=== PATIENT | male | born 1975 | race Caucasian/White ===

== ENCOUNTER 2017-01-03 19:58 | Emergency (ER) | payer OTHER ==
[~2017-01-03] VITALS: Ht 188 cm; Wt 77.9 kg
[2017-01-03 20:05] VITALS: TEMP 36.9; Ht 188 cm; Wt 77.9 kg
[2017-01-03] MEDS ORDERED: KETOROLAC TROMETHAMINE 60 MG/2 ML VIAL IM STA (20:40)
[2017-01-03] MEDS ORDERED: CYCLOBENZAPRINE HCL 10 MG TAB PO STA (20:40)
[2017-01-03] MEDS ORDERED: IBUP-103 PO (20:56)
--- NOTE | 2017-01-03 21:42 | DIAGNOSTIC IMAGING REPORT ---
RIGHT RIBS UNILATERAL WITH PA CHEST CLINICAL HISTORY: 41 years-old Male presenting with right rib pain s/p fall Right. TECHNIQUE: Frontal and lateral views of the right ribs and PA view of the chest were obtained. COMPARISON: None. FINDINGS: Cardiomediastinal silhouette normal. Lungs and pleural spaces clear. No pleural effusion or pneumothorax. No displaced rib fracture, however, minimal cortical irregularity of the right lateral ninth and 10th ribs. Remaining osseous structures intact. IMPRESSION: Questionable nondisplaced fractures of the right lateral ninth and 10th ribs. Electronically signed by: Kenneth Richardson M.D. 01/03/2017 9:41 PM Dictated Date/Time: 01/03/2017 9:38 PM
[2017-01-03 22:05] VITALS: BP 163/101; PULSE 88; O2SAT 100
[2017-01-03] MEDS ORDERED: OXYCODONE IR HOME PACK PO ONE (22:15)
[2017-01-03] MEDS ORDERED: IBUP-1427 PO (22:30)
[2017-01-03] MEDS ORDERED: ACET-1222 PO (22:30)
[2017-01-03] MEDS ORDERED: CYCL10TA6 PO (22:30)
[2017-01-03] MEDS ORDERED: OXYC1TAB3 PO (22:30)
--- NOTE | 2017-01-03 22:36 | EMERGENCY ROOM VISIT NOTE ---
ED Visit Note First contact with patient: 20:25 CHIEF COMPLAINT: Rib injury HISTORY OF PRESENT ILLNESS: This 41-year-old male patient presents to the emergency department ambulatory, complaining of pain in the right ribs after falling in the bathtub yesterday. The patient states he was taking a shower, when he slipped and fell landing on his right side on the side of the tub. The patient states the incident occurred yesterday morning. He has been taking Motrin, which does help with the muscle spasms. The patient states there are significant spasms in the right side and back. The patient denies hematuria, but is concerned about his kidneys. The patient states he did hear a crack when he fell. He went to urgent care, but was sent to the emergency department for further evaluation. There is increased pain with deep breathing or coughing. Attempting to sit up from a lying position is painful. Denies shortness of breath or coughing up blood. The patient rates the pain as sharp and 9/10. The patient has taken ibuprofen yesterday with minimal relief of the pain. No previous fractures to the ribs. The patient denies any other injury. The patient denies any abdominal pain, nausea, or vomiting. REVIEW OF SYSTEMS: A 6 system review of systems was completed with positives and pertinent negatives listed in the HPI. ALLERGIES: None MEDICATIONS: Tylenol, Mucinex PMH: Sinusitis, hypertension SOCIAL HISTORY: He should lives in [place]. He is in town for [employer] classes at [facility]. PHYSICAL EXAM: VITALS: Vitals are noted on the nurse's note and reviewed by myself. Vital signs stable. GENERAL: This is a 41-year-old male, in no acute distress, nondiaphoretic, well- developed well-nourished. LUNGS: Clear to auscultation and breath sounds equal , no wheezes, rales, or rhonchi. HEART: Heart sounds are regular without murmurs, ectopy, gallop, or rub. CHEST: The right chest wall is tender to palpation over the ankle and 10th ribs but there is no fracture crepitus and no ecchymosis. There is no tachypnea or dyspnea. ABDOMEN: Positive bowel sounds x 4. Normal tympanic percussion. Soft, nontender, without masses or organomegaly. No guarding or rebound tenderness. NEURO: Patient was alert and oriented to person place and time. RADIOLOGY: X-Ray Right Rib with PA Chest: FINDINGS: Cardiomediastinal silhouette normal. Lungs and pleural spaces clear. No pleural effusion or pneumothorax. No displaced rib fracture, however, minimal cortical irregularity of the right lateral ninth and 10th ribs. Remaining osseous structures intact. IMPRESSION: Questionable nondisplaced fractures of the right lateral ninth and 10th ribs. EMERGENCY DEPARTMENT COURSE: I examined the patient. The patient was given 60 mg Toradol IM and 10 mg cyclobenzaprine in the emergency department. He did report significant improvement in his pain with these medications. X-rays of the chest with right rib detail was reviewed by myself and radiologist and show nondisplaced fractures of the ninth and 10th ribs. I discussed this with the patient and showed him the images. The patient did take cell phone photos. He did request a disc, as he is returning home to [place] tomorrow. I discussed discharge instructions with the patient, and encouraged him to perform deep breathing exercises frequently. The patient is in agreement with the plan at this time. He was discharged home in good condition. DIAGNOSIS: Rib fracture TREATMENT and DISCHARGE INSTRUCTIONS: You have been treated in the Emergency Department for nondisplaced rib fracture (ribs 9 and 10). You have been prescribed OxyIR to be used for pain control. This is a narcotic medication. You cannot drive or consume alcohol while on this medicine. This medicine should only be used for pain that cannot be controlled with over-the- counter pain medicines. You have been prescribed Flexeril (cyclobenzaprine) 1 tab orally, three times per day. Do NOT exceed 30 mg (3 tabs) per day. Take your first dose at bedtime as it can make you drowsy. Always take all medications as prescribed. For pain control, you can use the following pfka-npy-paurked medicines (if >12 yo): Ibuprofen(Motrin, Advil) may be used for fever or pain. Use 600mg every six hours as needed. Take with food. Avoid using more than 2400mg in a 24 hour period. Do not use 2400mg per day for more than three consecutive days without physician direction. Prolonged inappropriate use can lead to stomach upset or ulcers. (AND/OR) Acetaminophen(Tylenol) may be used for fever or pain. Use 1000mg every six to eight hours as needed. Avoid using more than 3000mg in a 24 hour period. \ *You may alternate ibuprofen/acetaminophen every 3-4 hours. If this is an acute injury, ice can be applied to the area of pain for the first 3 days to help decrease pain and inflammation. After the first 3 days, a heating pad can be used over the area for continued soothing relief. To minimize your discomfort, you can hug a pillow while coughing or sneezing. Additionally, you should continue to force yourself to take nice, deep breaths. Full expansion of the lungs is necessary to prevent the accumulation of fluid in the lung tissue and development of pneumonia. Use the incentive spirometry device you received in the ED. You should schedule a follow-up appointment in 2-3 days with your Primary Care Provider for further evaluation and treatment of your back pain. Return to the Emergency Department if your current symptoms worsen despite treatment course outlined above, or if you develop any of the following symptoms : intractable pain despite aforementioned treatment course, development of a wet cough, bloody cough, fever, chills, or increased shortness of breath. Current/Historical Medications Scheduled Cyclobenzaprine Hcl (Flexeril), 10 MG PO TID Scheduled PRN Acetaminophen (Acetaminophen Extra Stren), 1-2 TABS PO TID PRN for Pain Ibuprofen Tab (Advil), 800 MG PO Q8 PRN for Pain Ibuprofen Tab (Motrin), 600 MG PO Q6H PRN for Pain Oxycodone Ir (Roxicodone Ir), 1-2 TAB PO Q4H PRN for Pain Allergies Coded Allergies: No Known Allergies (Unverified , 01/03/17) Vital Signs Date Time Temp Pulse Resp B/P (MAP) Pulse Ox O2 Delivery O2 Flow Rate FiO2 01/03/17 22:05 88 20 163/101 100 Room Air 01/03/17 20:05 36.9 101 18 165/113 94 Room Air Medications Administered Medications (Trade) Dose Ordered Sig/Nima Route Start Time Stop Time Status Last Admin Dose Admin Ketorolac Tromethamine (Toradol Inj) 60 mg NOW STAT IM 01/03/17 20:40 01/03/17 20:41 DC 01/03/17 20:59 60 MG Cyclobenzaprine HCl (Flexeril Tab) 10 mg NOW STAT PO 01/03/17 20:40 01/03/17 20:41 DC 01/03/17 20:59 10 MG Oxycodone HCl (Roxicodone Immediate Rel 5MG Home Pack) 1 homepack UD ONCE PO 01/03/17 22:15 01/03/17 22:16 DC 01/03/17 22:22 1 HOMEPACK Departure Information Impression Primary Impression: Multiple fractures of ribs, right side, initial encounter for closed fracture Dispostion Home / Self-Care Condition GOOD Prescriptions Oxycodone Ir (Roxicodone Ir) 5 Mg Tab 1-2 TAB PO Q4H Y for Pain, #30 TAB For Initial Treatment Prov: Ruma Cantu PA-C 01/03/17 Acetaminophen (ACETAMINOPHEN EXTRA STREN) 500 Mg Tab 1-2 TABS PO TID Y for Pain, #30 TABS Prov: Ruma Cantu PA-C 01/03/17 Ibuprofen Tab (MOTRIN) 600 Mg Tab 600 MG PO Q6H Y for Pain, #30 TAB Prov: Ruma Cantu PA-C 01/03/17 Cyclobenzaprine Hcl (FLEXERIL) 10 Mg Tab 10 MG PO TID, #15 TAB Prov: Ruma Cantu PA-C 01/03/17 Referrals No Doctor, Assigned (PCP) Patient Instructions ED Fx Rib, My [facility] Additional Instructions You have been treated in the Emergency Department for nondisplaced rib fracture (ribs 9 and 10). You have been prescribed OxyIR to be used for pain control. This is a narcotic medication. You cannot drive or consume alcohol while on this medicine. This medicine should only be used for pain that cannot be controlled with over-the- counter pain medicines. You have been prescribed Flexeril (cyclobenzaprine) 1 tab orally, three times per day. Do NOT exceed 30 mg (3 tabs) per day. Take your first dose at bedtime as it can make you drowsy. Always take all medications as prescribed. For pain control, you can use the following lsku-yzi-gzuileb medicines (if >12 yo): Ibuprofen(Motrin, Advil) may be used for fever or pain. Use 600mg every six hours as needed. Take with food. Avoid using more than 2400mg in a 24 hour period. Do not use 2400mg per day for more than three consecutive days without physician direction. Prolonged inappropriate use can lead to stomach upset or ulcers. (AND/OR) Acetaminophen(Tylenol) may be used for fever or pain. Use 1000mg every six to eight hours as needed. Avoid using more than 3000mg in a 24 hour period. \ *You may alternate ibuprofen/acetaminophen every 3-4 hours. If this is an acute injury, ice can be applied to the area of pain for the first 3 days to help decrease pain and inflammation. After the first 3 days, a heating pad can be used over the area for continued soothing relief. To minimize your discomfort, you can hug a pillow while coughing or sneezing. Additionally, you should continue to force yourself to take nice, deep breaths. Full expansion of the lungs is necessary to prevent the accumulation of fluid in the lung tissue and development of pneumonia. Use the incentive spirometry device you received in the ED. You should schedule a follow-up appointment in 2-3 days with your Primary Care Provider for further evaluation and treatment of your back pain. Return to the Emergency Department if your current symptoms worsen despite treatment course outlined above, or if you develop any of the following symptoms : intractable pain despite aforementioned treatment course, development of a wet cough, bloody cough, fever, chills, or increased shortness of breath.
== END 2017-01-03 22:30 | disposition home or self-care (01) ==
LOC: C.EDB 20:00 → C.EDD 22:30
DX: S22.41XA Multiple fractures of ribs, right side, initial encounter for closed fracture (principal); W01.0XXA Fall on same level from slipping, tripping and stumbling without subsequent striking against object, initial encounter; I10 Essential (primary) hypertension